=== PATIENT | male | born 1935 | race Caucasian/White ===

== ENCOUNTER 2020-12-22 01:32 | Day surgery (SDC) | payer OTHER, MEDICARE ==
[~2020-12-22 01:32] MED LIST: AMLO5 PO; Benazepril HCl20 MG PO; CARBIDOPA-LEVO1 EA15 PO; FLUT.05NI; Hytrin1 MG PO; METR250 PO; SENNA PLUS TAB1 EACH PO; Vitamin D2000 UNIT PO; ZYRTEC10 M2 PO
--- NOTE | 2020-12-22 14:44 | NUR ---
POST INFUSION CHECK-PT SITTING IN CHAIR WITH EYES CLOSED APPEARS TO BE SLEEPING. NO RESPIRATORY DISTRESS NOTED.
--- NOTE | 2020-12-22 15:16 | NUR ---
POST INFUSION CHECK. PT FEELS FINE.
== END 2020-12-22 15:42 | disposition home or self-care (01) ==
LOC: ATC 01:32
DX: U07.1 COVID-19 (principal)
CPT/HCPCS: 96365; Q0243

== ENCOUNTER 2022-02-14 11:09 | Emergency (ER) | payer OTHER ==
[~2022-02-14] VITALS: Ht 182.9 cm; Wt 81.7 kg
== END 2022-02-14 12:20 | disposition home or self-care (01) ==
LOC: ER 11:09
DX: S01.01XA Laceration without foreign body of scalp, initial encounter (principal); I10 Essential (primary) hypertension; Z79.899 Other long term (current) drug therapy; Z87.891 Personal history of nicotine dependence; W01.0XXA Fall on same level from slipping, tripping and stumbling without subsequent striking against object, initial encounter
CPT/HCPCS: 12002; 70450; 99283-25

== ENCOUNTER 2023-02-05 16:17 | Observation (INO) | payer OTHER ==
[~2023-02-05] VITALS: Ht 177.8 cm; Wt 74.3 kg
[2023-02-05] MEDS ORDERED: MELATONIN5 M1 PO (17:14)
[2023-02-05 20:32] LABS: BASOPHILS ABSOLUTE AUTO 0.04 K/mm3 (0.00-0.23); BASOPHILS PERCENT AUTO 1 % (0-2); EOSINOPHILS ABSOLUTE AUTO 0.21 K/mm3 (0.00-0.68); EOSINOPHILS PERCENT AUTO 2 % (0-6); Hematocrit 36.3 % (37.0-53.0); IMMATURE GRAN ABSOLUTE AUTO 0.11 K/mm3 (0.00-0.10); IMMATURE GRAN PERCENT AUTO 1 % (0-1); LYMPHOCYTES ABSOLUTE AUTO 1.44 K/mm3 (0.84-5.20); LYMPHOCYTES PERCENT AUTO 16 % (21-46); MONOCYTES PERCENT AUTO 8 % (4-13); Mean Corpuscular HGB 30.6 pg (26.0-34.0); Mean Corpuscular HGB Conc 33.1 g/dL (31.5-36.5); Mean Corpuscular Volume 93 fL (80-100); Mean Platelet Volume 8.8 fL (9.1-12.4); NEUTROPHILS ABSOLUTE AUTO 6.35 K/mm3 (1.96-9.15); NEUTROPHILS PERCENT AUTO 72 % (41-73); Platelet Count 225 K/mm3 (150-400); RDW Coefficient Variation 12.7 % (11.7-14.2); RDW Standard Deviation 43.1 fL (35.1-46.3); Red Blood Cell Count 3.92 M/mm3 (4.30-5.90); White Blood Cell Count 8.85 K/mm3 (4.00-11.30)
[2023-02-05 20:42] VITALS: BP 143/84
[2023-02-05 20:53] LABS: Albumin, Blood 3.3 g/dL (3.4-5.0); Albumin/Globulin Ratio 0.8 (0.8-1.8); Bilirubin, Total 0.2 mg/dL (0.1-1.0); Bun/Creatinine Ratio 15.2 (12.0-20.0); Calcium, Blood 8.6 mg/dL (8.5-10.1); Creatinine, Blood 0.92 mg/dL (0.60-1.20); Globulin, Blood 4.1 g/dL (2.2-4.0); Potassium, Blood 3.7 mmol/L (3.5-5.5); Total Protein, Blood 7.4 g/dL (6.4-8.2)
[2023-02-05 22:05] LABS: Source, Urine Clean Catch
[2023-02-05 22:44] LABS: Bilirubin, Urine Neg (Neg); Blood, Urine Neg (Neg); Glucose Qualitative, Urine Neg (Neg); Ketones, Urine Neg (Neg); Leukocyte Esterase, Urine Neg (Neg); Nitrite, Urine Neg (Neg); Protein, Urine Neg (Neg); Specific Gravity, Urine 1.015 (1.003-1.022); Urobilinogen, Urine NORM (Normal)
[2023-02-05 22:59] LABS: Appearance, Urine Clear (Clear); Color, Urine Yellow (P-Yellow)
[2023-02-06 05:04] VITALS: BP 139/84
[2023-02-06 05:08] LABS: BASOPHILS ABSOLUTE AUTO 0.04 K/mm3 (0.00-0.23); BASOPHILS PERCENT AUTO 0 % (0-2); EOSINOPHILS ABSOLUTE AUTO 0.32 K/mm3 (0.00-0.68); EOSINOPHILS PERCENT AUTO 3 % (0-6); Hematocrit 35.7 % (37.0-53.0); Hemoglobin 11.8 g/dL (13.5-17.5); IMMATURE GRAN ABSOLUTE AUTO 0.09 K/mm3 (0.00-0.10); IMMATURE GRAN PERCENT AUTO 1 % (0-1); LYMPHOCYTES ABSOLUTE AUTO 1.31 K/mm3 (0.84-5.20); LYMPHOCYTES PERCENT AUTO 14 % (21-46); MONOCYTES ABSOLUTE AUTO 0.78 K/mm3 (0.16-1.47); MONOCYTES PERCENT AUTO 8 % (4-13); Mean Corpuscular HGB 30.8 pg (26.0-34.0); Mean Corpuscular HGB Conc 33.1 g/dL (31.5-36.5); Mean Corpuscular Volume 93 fL (80-100); Mean Platelet Volume 8.9 fL (9.1-12.4); NEUTROPHILS ABSOLUTE AUTO 6.76 K/mm3 (1.96-9.15); NEUTROPHILS PERCENT AUTO 73 % (41-73); Platelet Count 210 K/mm3 (150-400); RDW Coefficient Variation 12.5 % (11.7-14.2); RDW Standard Deviation 42.9 fL (35.1-46.3); Red Blood Cell Count 3.83 M/mm3 (4.30-5.90)
[2023-02-06 05:40] LABS: Albumin/Globulin Ratio 0.8 (0.8-1.8); Bilirubin, Total 0.2 mg/dL (0.1-1.0); Bun/Creatinine Ratio 17.1 (12.0-20.0); Calcium, Blood 8.5 mg/dL (8.5-10.1); Creatinine, Blood 0.88 mg/dL (0.60-1.20); Potassium, Blood 3.7 mmol/L (3.5-5.5)
--- NOTE | 2023-02-06 05:51 | NUR ---
SHIFT SUMMARY PT IS A&O4, SB TO BR USING URINAL, SPOUSE HAS BEEN AT BEDSIDE THROUGHOUT THE NIGHT, RA, VSS, NO COMPLAINTS OF ANY PAIN OR DISCOMFORT THIS SHFIT, CONTINUE POC
[2023-02-06 07:40] VITALS: BP 139/71
--- NOTE | 2023-02-06 12:15 | NUR ---
SHIFT SUMMARY AND DISCHARGE PATIENT DISCHARGED HOME. DISCHARGE INSTRUCTIONS REVIEWED WITH AND PATIENT. DIETARY PROVIDED EDUCATION RELATED TO DIABETES. PATIENT EDUCATED RELATED TO INSULIN INJECTIONS AND PERFORMED PROCESS. EDUCATION PROVIDED RELATED TO BLOOD GLUCOSE TESTING. REVIEWED SLIDING SCALE. PATIENT TO HAVE HOME HEALTH FOLLOW UP AFTER DISCHARGE. PATIENT INDENPENDENT IN THE ROOM, WALKING INDEPENDENTLY IN THE HALLS. PATIEN DENIES ANY CHEST PAIN. R WRIST ACCESS SITE WNL. DRESSING IN PLACE. PATIENT EDUCATED ON CARE OF ACCESS SITE. BELONGINGS SENT HOME WITH PATIENT. IV'S DC'D. ROOM CHECK DONE BEFORE PATIENT DISCHARGED.
[2023-02-06] MEDS ORDERED: Acetaminophen650 M1 PO (15:15)
--- NOTE | 2023-02-06 15:30 | NUR ---
SHIFT SUMMARY AND DISCHARGE PATIENT DISCHARGED TO HOME. PATIENT ABLE TO AMBULATE INDEPENDENTLY IN THE ROOM WITH WALKER. PRESENT DURING STAY. 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 DISCHARGE INSTRUCTIONS REVIEWED WITH AND PATIENT. IV DC'D. BELONGINGS SENT HOME WITH PATIENT. ROOM CHECK DONE PRIOR TO PATIENT LEAVING. PATIENT TO FOLLOW UP WITH PT AN OUTPATIENT AND TO CONTACT NEUROLOGIST FOR FURTHER RECOMMENDATIONS RELATED TO PARKINSONS MEDS
== END 2023-02-06 15:39 | disposition home or self-care (01) ==
LOC: ER 16:17 → MEDS 16:18
PROVIDERS: ADMIT Internal Medicine
DX: S06.5X0A Traumatic subdural hemorrhage without loss of consciousness, initial encounter (principal); I10 Essential (primary) hypertension; G20.A1 Parkinson's disease without dyskinesia, without mention of fluctuations; Z87.891 Personal history of nicotine dependence; W01.198A Fall on same level from slipping, tripping and stumbling with subsequent striking against other object, initial encounter
CPT/HCPCS: 36415; 70450; 80053; 81003; 83880; 85025; 93005; 93010; 97110; 97116; 97162; 97165; 97530; 97535; 99285-25; A9270; G0378; J7030

== ENCOUNTER 2024-08-09 19:49 | Inpatient (IN) | payer OTHER ==
[~2024-08-09] VITALS: Ht 180.3 cm; Wt 74.8 kg
[~2024-08-09 19:49] MED LIST changes: +Acetaminophen650 M1 PO; +MELATONIN5 M1 PO
[2024-08-09 20:46] LABS: BASOPHILS ABSOLUTE AUTO 0.02 K/mm3 (0.00-0.23); BASOPHILS PERCENT AUTO 0 % (0-2); EOSINOPHILS PERCENT AUTO 0 % (0-6); Hematocrit 39.9 % (37.0-53.0); Hemoglobin 13.2 g/dL (13.5-17.5); IMMATURE GRAN ABSOLUTE AUTO 0.12 K/mm3 (0.00-0.10); IMMATURE GRAN PERCENT AUTO 1 % (0-1); LYMPHOCYTES ABSOLUTE AUTO 0.36 K/mm3 (0.84-5.20); LYMPHOCYTES PERCENT AUTO 2 % (21-46); MONOCYTES ABSOLUTE AUTO 0.41 K/mm3 (0.16-1.47); MONOCYTES PERCENT AUTO 3 % (4-13); Mean Corpuscular HGB 31.2 pg (26.0-34.0); Mean Corpuscular HGB Conc 33.1 g/dL (31.5-36.5); Mean Corpuscular Volume 94 fL (80-100); Mean Platelet Volume 8.9 fL (9.1-12.4); NEUTROPHILS ABSOLUTE AUTO 14.59 K/mm3 (1.96-9.15); NEUTROPHILS PERCENT AUTO 94 % (41-73); Platelet Count 182 K/mm3 (150-400); RDW Coefficient Variation 12.3 % (11.7-14.2); RDW Standard Deviation 42.6 fL (35.1-46.3); Red Blood Cell Count 4.23 M/mm3 (4.30-5.90)
[2024-08-09] MEDS ORDERED: Lactated Ringer's 1,000 ML IV ONE (21:25)
[2024-08-09] MEDS ORDERED: Ketorolac Tromethamine 15mg Vial IV ONE (21:25)
[2024-08-09 22:04] LABS: Influenza A, PCR NEGATIVE (NEGATIVE); Influenza B, PCR NEGATIVE (NEGATIVE); Resp Syncytial Virus, PCR NEGATIVE (NEGATIVE); SARS-Cov-2 (COVID-19) PCR, MMC NEGATIVE (NEGATIVE)
[2024-08-09] MEDS ORDERED: CefTRIAXone Sodium 1,000 MG in NS 100 ML IV ONE (22:30)
[2024-08-09] MEDS ORDERED: Azithromycin 500 MG in NS 250 ML IV ONE (22:35)
[2024-08-09 22:47] LABS: Albumin, Blood 3.4 g/dL (3.4-5.0); Albumin/Globulin Ratio 0.9 (0.8-1.8); Bilirubin, Total 0.7 mg/dL (0.1-1.0); Bun/Creatinine Ratio 18.3 (12.0-20.0); Calcium, Blood 8.1 mg/dL (8.5-10.1); Creatinine, Blood 0.93 mg/dL (0.60-1.20); Globulin, Blood 3.9 g/dL (2.2-4.0); Potassium, Blood 3.6 mmol/L (3.5-5.5); Total Protein, Blood 7.3 g/dL (6.4-8.2)
[2024-08-09] MEDS ORDERED: Levodopa/Carbidopa 100 / 25 MG Tab PO ONE (23:15)
[2024-08-09] MEDS ORDERED: Acetaminophen 500 MG Tab PO ONE (23:15)
[2024-08-09] MEDS ORDERED: Acetaminophen 325 MG TABLET PO PRN (23:40)
[2024-08-09] MEDS ORDERED: Albuterol 2.5 MG/3 ML VIAL INH PRN (23:40)
[2024-08-09] MEDS ORDERED: Melatonin 3 MG Tab PO PRN (23:40)
[2024-08-10 00:48] VITALS: BP 108/55
[2024-08-10 05:04] VITALS: BP 120/64
[2024-08-10 05:30] LABS: BASOPHILS ABSOLUTE AUTO 0.03 K/mm3 (0.00-0.23); BASOPHILS PERCENT AUTO 0 % (0-2); EOSINOPHILS PERCENT AUTO 0 % (0-6); Hematocrit 35.1 % (37.0-53.0); Hemoglobin 11.7 g/dL (13.5-17.5); IMMATURE GRAN ABSOLUTE AUTO 0.15 K/mm3 (0.00-0.10); IMMATURE GRAN PERCENT AUTO 1 % (0-1); LYMPHOCYTES ABSOLUTE AUTO 1.45 K/mm3 (0.84-5.20); LYMPHOCYTES PERCENT AUTO 8 % (21-46); MONOCYTES ABSOLUTE AUTO 0.59 K/mm3 (0.16-1.47); MONOCYTES PERCENT AUTO 3 % (4-13); Mean Corpuscular HGB Conc 33.3 g/dL (31.5-36.5); Mean Corpuscular Volume 93 fL (80-100); NEUTROPHILS ABSOLUTE AUTO 16.38 K/mm3 (1.96-9.15); NEUTROPHILS PERCENT AUTO 88 % (41-73); Platelet Count 166 K/mm3 (150-400); RDW Coefficient Variation 12.4 % (11.7-14.2); RDW Standard Deviation 42.4 fL (35.1-46.3); Red Blood Cell Count 3.78 M/mm3 (4.30-5.90)
[2024-08-10 05:52] LABS: Albumin, Blood 2.8 g/dL (3.4-5.0); Albumin/Globulin Ratio 0.8 (0.8-1.8); Bilirubin, Total 0.9 mg/dL (0.1-1.0); Bun/Creatinine Ratio 18.2 (12.0-20.0); Calcium, Blood 7.7 mg/dL (8.5-10.1); Creatinine, Blood 1.1 mg/dL (0.60-1.20); Globulin, Blood 3.7 g/dL (2.2-4.0); Magnesium, Blood 1.7 mg/dL (1.6-2.4); Potassium, Blood 4.1 mmol/L (3.5-5.5); Total Protein, Blood 6.5 g/dL (6.4-8.2)
[2024-08-10 07:25] VITALS: BP 115/72
[2024-08-10] MEDS ORDERED: Levodopa/Carbidopa 100 / 25 MG Tab PO SCH (09:00)
[2024-08-10] MEDS ORDERED: Lisinopril 20 MG Tab PO SCH (09:00)
[2024-08-10] MEDS ORDERED: Lactobacil 2-S.Thermo-Bifido 1 1 Cap PO SCH (09:00)
[2024-08-10] MEDS ORDERED: Magnesium Sulf 2 GM/Water 50ML 50 ML IV ONE (15:00)
[2024-08-10] MEDS ORDERED: NS 250 ML IV PRN (15:10)
[2024-08-10 15:18] VITALS: BP 131/67
--- NOTE | 2024-08-10 18:22 | NUR ---
SHIFT SUMMARY PT CONT LEVEL OF CARE. PT NOTED TO BE A&O TO SELF, PLACE, AND FAMILY THIS SHIFT. PT NOTED TO WORK WITH PT/OT AND NOTED TO BE ASSIST X1 WITH FWW AND GAITBELT. PT NOTED TO BE CONT/INCONT OF BLADDER. PHYSICIAN ORDER ST EVAL AND TREAT. NEW ORDERS RECEIVED FOR SOFT BITE SIZE DIET AND NECTURE THICKENED LIQUIDS. MEDICATION TO BE TAKEN WHOLE WITH APPLESAUCE. PT IS TO HAVE A BARRIUM SWALLOW STUDY DONE TOMORROW 08/11 PT IS BELIEVED TO BE SILENTLY ASPIRATING. PT/ST/OT ALL HAVE RECOMMENDED THAT PT TO GO HOME WITH HOME HEALTH AT [place].
[2024-08-10 19:15] VITALS: BP 116/68
[2024-08-10] MEDS ORDERED: Azithromycin 500 MG in NS 250 ML IV SCH (21:00)
[2024-08-10] MEDS ORDERED: CefTRIAXone Sodium 1,000 MG in NS 100 ML IV SCH (21:00)
--- NOTE | 2024-08-10 21:58 | NUR ---
PT HAD AN EPISODE OF CHEST PAIN CONSISTING OF STABBING PAIN AND PRESSURE RADIATING TO THE RIGHT SHOULDER AND BACK. MD CALLED FOR ORDER OF NITRO THAT IS ON HOME MED LIST. ORDER OBTAINED TO GIVE [id number] AND FOR EKG. GIVEN PER MD ORDER. NO RELIEF. MD CALLED FOR NEW ORDERS OF TROP Q8H X3 AND FENTANYL. MED GIVEN PER MD ORDER, RELIEF WAS OBTAINED. TROP WNL.
--- NOTE | 2024-08-10 22:02 | NUR ---
PLEASE DISREGARD THIS PREVIOUS'S NURSES NOTE PERTAINING TO CHEST PAIN. THIS WAS WRONG PT CHART.
[2024-08-11 02:23] VITALS: BP 137/68
[2024-08-11 06:09] LABS: BASOPHILS ABSOLUTE AUTO 0.02 K/mm3 (0.00-0.23); BASOPHILS PERCENT AUTO 0 % (0-2); EOSINOPHILS ABSOLUTE AUTO 0.07 K/mm3 (0.00-0.68); EOSINOPHILS PERCENT AUTO 1 % (0-6); Hematocrit 38.1 % (37.0-53.0); Hemoglobin 12.8 g/dL (13.5-17.5); IMMATURE GRAN ABSOLUTE AUTO 0.12 K/mm3 (0.00-0.10); IMMATURE GRAN PERCENT AUTO 1 % (0-1); LYMPHOCYTES ABSOLUTE AUTO 1.15 K/mm3 (0.84-5.20); LYMPHOCYTES PERCENT AUTO 9 % (21-46); MONOCYTES ABSOLUTE AUTO 0.52 K/mm3 (0.16-1.47); MONOCYTES PERCENT AUTO 4 % (4-13); Mean Corpuscular HGB 31.2 pg (26.0-34.0); Mean Corpuscular HGB Conc 33.6 g/dL (31.5-36.5); Mean Corpuscular Volume 93 fL (80-100); Mean Platelet Volume 9.1 fL (9.1-12.4); NEUTROPHILS ABSOLUTE AUTO 11.49 K/mm3 (1.96-9.15); NEUTROPHILS PERCENT AUTO 86 % (41-73); Platelet Count 204 K/mm3 (150-400); RDW Coefficient Variation 12.4 % (11.7-14.2); RDW Standard Deviation 42.7 fL (35.1-46.3); White Blood Cell Count 13.37 K/mm3 (4.00-11.30)
[2024-08-11 06:32] LABS: Bun/Creatinine Ratio 19.1 (12.0-20.0); Calcium, Blood 8.8 mg/dL (8.5-10.1); Potassium, Blood 3.7 mmol/L (3.5-5.5)
--- NOTE | 2024-08-11 06:40 | NUR ---
LATE ENTRY: TRANSFER NOTE: PT TRANSFERRED FROM ROOM 327. TOA: 0630. REPORT RECEIVED FROM MATTHEW ZACARIAS RN. AT TIME OF ARRIVAL PT RESTING COMFORTABLY IN BED. NO S/S OF PAIN OR ACUTE DISTRESS. BED IN LOWEST POSITION. CALL LIGHT ON PT LAP.
[2024-08-11 07:35] VITALS: BP 131/75
[2024-08-11 15:32] VITALS: BP 138/71
[2024-08-11 19:47] VITALS: BP 148/81
[2024-08-11] MEDS ORDERED: NS 250 ML IV PRN (21:55)
[2024-08-12 03:11] VITALS: BP 143/79
--- NOTE | 2024-08-12 06:33 | NUR ---
SWING GRINDER SUMMARY: PT A&O X2, PERSON AND PLACE. RESTING COMFORTABLY IN BED. AT SHIFT CHANGE PT USING CALL LIGHT EXCESSIVELY TO HAVE HOB ADJUSTED. MEDICATED WITH PRN MELATONIN WITH HS MEDS; EFFECTIVE. PT HAS SLEPT THROUGH SHIFT WITH NO S/S OF ACUTE DISTRESS. SATS MAINTAINED ABOVE 90% ON RA. NO ADVERSE SIDE EFFECTS TO IV ABX. BED IN LOWEST POSITION. BED ALARM ARMED. CARES ONGOING ORDERED. POSSIBLE D/C HOME WITH CG.
[2024-08-12 06:42] LABS: BASOPHILS ABSOLUTE AUTO 0.08 K/mm3 (0.00-0.23); BASOPHILS PERCENT AUTO 1 % (0-2); EOSINOPHILS ABSOLUTE AUTO 0.21 K/mm3 (0.00-0.68); EOSINOPHILS PERCENT AUTO 2 % (0-6); Hematocrit 39.5 % (37.0-53.0); Hemoglobin 12.9 g/dL (13.5-17.5); IMMATURE GRAN ABSOLUTE AUTO 0.21 K/mm3 (0.00-0.10); IMMATURE GRAN PERCENT AUTO 2 % (0-1); LYMPHOCYTES ABSOLUTE AUTO 1.19 K/mm3 (0.84-5.20); LYMPHOCYTES PERCENT AUTO 13 % (21-46); MONOCYTES ABSOLUTE AUTO 0.54 K/mm3 (0.16-1.47); MONOCYTES PERCENT AUTO 6 % (4-13); Mean Corpuscular HGB 30.2 pg (26.0-34.0); Mean Corpuscular HGB Conc 32.7 g/dL (31.5-36.5); Mean Corpuscular Volume 93 fL (80-100); Mean Platelet Volume 8.8 fL (9.1-12.4); NEUTROPHILS ABSOLUTE AUTO 6.89 K/mm3 (1.96-9.15); NEUTROPHILS PERCENT AUTO 76 % (41-73); Platelet Count 204 K/mm3 (150-400); RDW Coefficient Variation 12.3 % (11.7-14.2); Red Blood Cell Count 4.27 M/mm3 (4.30-5.90); White Blood Cell Count 9.12 K/mm3 (4.00-11.30)
[2024-08-12 06:51] LABS: Bun/Creatinine Ratio 18.9 (12.0-20.0); Calcium, Blood 8.7 mg/dL (8.5-10.1); Creatinine, Blood 0.95 mg/dL (0.60-1.20); Potassium, Blood 3.8 mmol/L (3.5-5.5)
[2024-08-12 07:12] VITALS: BP 146/73
[2024-08-12] MEDS ORDERED: Azithromycin 500 MG in NS 250 ML IV ONE (08:30)
[2024-08-12] MEDS ORDERED: MELA3 PO (15:45)
[2024-08-12] MEDS ORDERED: AMOCLA875 PO (15:46)
[2024-08-12] MEDS ORDERED: VISBIOME 112.51 EACH PO (16:50)
[2024-08-12] MEDS ORDERED: Benazepril HCl10 MG PO (16:51)
[2024-08-12] MEDS ORDERED: Vitamin D1000 UNI1 PO (16:52)
[2024-08-12] MEDS ORDERED: ZYRTEC10 M1 PO (16:54)
--- NOTE | 2024-08-12 18:47 | NUR ---
DISCHARGE NOTE- PT AND SPOUSE WERE GIVEN VERBAL AND WRITTEN DISCHARGE INSTRUCTIONS AND ACKNOWLEDGED UNDERSTANDING OF THEM. IV WAS DC'D PRIOR TO PT DISCHARGE. PT ESCORTED OUT VIA WC BY THE RN, NO S&S OF DISTRESS NOTED AT THE TIME OF DISCHARGE.
== END 2024-08-12 17:14 | disposition home health service (06) | DRG 871 ==
LOC: ER 19:49 → ERHOLD 19:50 → MEDS 19:50
PROVIDERS: Student in an Organized Health Care Education/Training Program; ADMIT Student in an Organized Health Care Education/Training Program
DX: A41.9 Sepsis, unspecified organism (principal); G92.8 Other toxic encephalopathy; J18.9 Pneumonia, unspecified organism; J69.0 Pneumonitis due to inhalation of food and vomit; Z66 Do not resuscitate; I10 Essential (primary) hypertension; G20.A1 Parkinson's disease without dyskinesia, without mention of fluctuations; Z85.46 Personal history of malignant neoplasm of prostate; Z87.891 Personal history of nicotine dependence; Z79.899 Other long term (current) drug therapy
CPT/HCPCS: 0241U; 36415; 71046; 74230; 80048; 80053; 83605; 83735; 84145; 84484; 85025; 92526; 92610; 92611; 93005; 93010; 96365; 96367; 96375; 97110; 97116; 97162; 97530; 99285-25; A9270; G0378; J0456; J0696; J1885; J3475; J7050; J7120

== ENCOUNTER 2025-03-16 22:16 | Emergency (ER) | payer OTHER ==
[~2025-03-16] VITALS: Ht 180.3 cm; Wt 79.4 kg
[~2025-03-16 22:16] MED LIST changes: +AMOCLA875 PO; +Benazepril HCl10 MG PO; +MELA3 PO; +VISBIOME 112.51 EACH PO; +Vitamin D1000 UNI1 PO; +ZYRTEC10 M1 PO
[2025-03-16 23:51] VITALS: BP 120/76
== END 2025-03-17 00:13 | disposition home or self-care (01) ==
LOC: ER 22:16
DX: S00.11XA Contusion of right eyelid and periocular area, initial encounter (principal); G20.A1 Parkinson's disease without dyskinesia, without mention of fluctuations; I10 Essential (primary) hypertension; Z87.891 Personal history of nicotine dependence; Z79.899 Other long term (current) drug therapy; W18.39XA Other fall on same level, initial encounter
CPT/HCPCS: 70450; 70486; 72125; 99284-25; A9270